=== PATIENT | female | born 1975 | race Two or more races ===

== ENCOUNTER 2018-07-05 19:20 | Emergency (ER) | payer OTHER ==
[2018-07-05 19:49] VITALS: BP 124/78; PULSE 71; TEMP 98.1; BMI 26.2
[2018-07-05] MEDS ORDERED: DIPHTH,PERTUSS(ACELL),TET 0.5 ML DISP.SYRIN IM ONE ×2 (20:09→20:10)
--- NOTE | 2018-07-05 20:10 | PDOC ---
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 Patient does not recall last tetanus vaccine. Denies any other symptoms Timing/Duration: 1-3 hours Past History - Past Medical History Allergies/Adverse Reactions: Allergies Allergy/AdvReac Type Severity Reaction Status Date / Time No Known Allergies Allergy Verified 07/05/18 20:12 COPD: No - Suicide/Smoking/Psychosocial Hx Smoking History: Unknown if ever smoked Hx Alcohol Use: No Drug/Substance Use Hx: No Review of Systems - Review of Systems Able to Perform ROS?: Yes Is the patient limited Tongan proficient: No Constitutional: No: Weakness HEENTM: No: Symptoms Reported Respiratory: No: Symptoms reported Cardiac (ROS): No: Symptoms Reported ABD/GI: No: Symptoms Reported Musculoskeletal: No: Symptoms Reported, Muscle Pain Integumentary: Yes: See HPI, Bruising (right lteral forearm) *Physical Exam - Vital Signs Last Vital Signs Temp Pulse Resp BP Pulse Ox 98.1 F 71 20 124/78 100 07/05/18 19:45 07/05/18 19:45 07/05/18 19:45 07/05/18 19:45 07/05/18 19:45 - Physical Exam General Appearance: Yes: Nourished, Appropriately Dressed. No: Apparent Distress HEENT: positive: Normal ENT Inspection Neck: positive: Supple Respiratory/Chest: positive: Normal Breath Sounds. negative: Respiratory Distress, Accessory Muscle Use Cardiovascular: positive: Regular Rhythm, Regular Rate Musculoskeletal: positive: Normal Inspection Extremity: positive: Normal Capillary Refill, Other (small 1cm superifical linear abrasion to lateral aspect of right proximal forearm . no bleeding to site) Neurologic: positive: Fully Oriented, Alert Moderate Sedation - Procedure Monitoring Vital Signs: Procedure Monitoring Vital Signs Temperature 98.1 F 07/05/18 19:45 Pulse Rate 71 07/05/18 19:45 Respiratory Rate 20 07/05/18 19:45 Blood Pressure 124/78 07/05/18 19:45 O2 Sat by Pulse Oximetry (%) 100 07/05/18 19:45 Medical Decision Making - Medical Decision Making 07/05/18 21:26 Patient presented for evaluation after having abrasion to right forearm from a stretcher while responding to a code as a nurse in the rapid response team area and Exam significant for 1 cm superficial linear laceration to right proximal forearm on the lateral side. Wound cleaned with Betadine and bacitracin apply to wound. Wound covered with adhesive bandage. Tetanus vaccine given. Patient is stable for discharge *DC/Admit/Observation/Transfer Diagnosis at time of Disposition: Abrasion of right forearm, initial encounter - Discharge Dispostion Disposition: HOME Condition at time of disposition: Stable Decision to Admit order: No - Referrals Referrals: Diane Rabago MD [Primary Care Provider] - - Patient Instructions Printed Discharge Instructions: DI for Abrasion Additional Instructions: Keep wound clean. Apply neosporin or bacitracin twice/day to wound until healed. Take motrin as needed for pain - Post Discharge Activity
== END 2018-07-05 20:18 | disposition home or self-care (01) ==
LOC: JER 19:20 → JERFT 19:20
PROC: 3E0234Z Introduction of Serum, Toxoid and Vaccine into Muscle, Percutaneous Approach (ICD-10-PCS; principal; 2018-07-05)
DX: S50.811A Abrasion of right forearm, initial encounter (principal); W22.8XXA Striking against or struck by other objects, initial encounter; Y93.F9 Activity, other caregiving; Y92.238 Other place in hospital as the place of occurrence of the external cause; Y99.0 Civilian activity done for income or pay
CPT/HCPCS: 90715; 99281-25